=== PATIENT | female | born 1950 | race Caucasian/White ===

== ENCOUNTER 2022-04-19 10:03 | Inpatient (IN) | payer MEDICARE, OTHER ==
[~2022-04-19] VITALS: Ht 152.4 cm; Wt 95.7 kg
[2022-04-19] MEDS ORDERED: ONDANSETRON 4 MG/2 ML VIAL ONE (10:24)
[2022-04-19] MEDS ORDERED: LIDOCAINE VISCUS 2% 15 ML UDC ONE (10:25)
[2022-04-19] MEDS ORDERED: MAG HYDROX/AL HYDROX/SIMETH 30 ML LIQUID UDC ONE (10:25)
[2022-04-19] MEDS ORDERED: FAMOTIDINE. 20 MG/2 ML VIAL IV ONE ×2 (10:25→10:30)
[2022-04-19] MEDS ORDERED: IV NORMAL SALINE 1000 ML BAG IV ONE (10:30)
[2022-04-19] MEDS ORDERED: LIDOCAINE VISCUS 2% 15 ML UDC MM ONE (10:30)
[2022-04-19] MEDS ORDERED: ONDANSETRON 4 MG/2 ML VIAL IV ONE (10:30)
[2022-04-19] MEDS ORDERED: MAG HYDROX/AL HYDROX/SIMETH 30 ML LIQUID UDC PO ONE (10:30)
[2022-04-19 10:40] LABS: HEMATOCRIT 36.8 % (31.2-41.9); MEAN CORPUSCULAR HEMOGLOBIN 27.6 uug (24.7-32.8); MEAN CORPUSCULAR VOLUME 86.9 fL (75.5-95.3); PLATELET COUNT (AUTO) 178 K/uL (179-408)
[2022-04-19 11:00] LABS: CARBON DIOXIDE 24 mmol/L (21-32); CHLORIDE 101 mmol/L (98-107); CREATININE 1.1 mg/dL (0.6-1.3); GLUCOSE 291 mg/dL (74-106); POTASSIUM 4.1 mmol/L (3.5-5.1); UREA NITROGEN, BLOOD 35 mg/dL (7-18)
[2022-04-19 11:08] LABS: ALANINE AMINOTRANSFERASE 39 U/L (14-59); ALKALINE PHOSPHATASE 76 U/L (50-136); ASPARTATE AMINOTRANSFERASE 34 U/L (15-37); BILIRUBIN,DIRECT 0.1 mg/dL (0.0-0.2); BILIRUBIN,TOTAL 0.4 mg/dL (0.2-1.0); LIPASE 302 U/L (73-393); TOTAL PROTEIN, SERUM 7.6 g/dL (6.4-8.2)
--- NOTE | 2022-04-19 13:32 | NUR ---
Pt transfer to Tele room 220.
[2022-04-19] MEDS ORDERED: ROSU10TA29 PO (16:25)
[2022-04-19] MEDS ORDERED: LEFL20TA18 PO (16:25)
[2022-04-19] MEDS ORDERED: METF-440 PO (16:25)
[2022-04-19] MEDS ORDERED: LEVO75TA7 PO (16:25)
[2022-04-19] MEDS ORDERED: EMPA10TA PO (16:25)
[2022-04-19] MEDS ORDERED: FAMO40TA7 PO (16:25)
[2022-04-19] MEDS ORDERED: GLIM2TAB31 PO (16:30)
[2022-04-19] MEDS ORDERED: DICL100G31 TP (16:38)
[2022-04-19] MEDS ORDERED: ICOS1CAP PO (16:39)
[2022-04-19] MEDS: BLOOD SUGAR DIAGNOSTIC 1 EACH STRIP VI SCH ×2 (17:30→21:39)
[2022-04-19] MEDS ORDERED: DEXTROSE 50% 50 ML DISP.SYRIN IV PRN (17:30)
[2022-04-19] MEDS ORDERED: ALBUTEROL SULFATE 8 GM HFA.AER.AD IH PRN (17:30)
[2022-04-19] MEDS ORDERED: ONDANSETRON 4 MG/2 ML VIAL IV PRN (17:30)
[2022-04-19] MEDS ORDERED: MORPHINE SULFATE 2 MG/1 ML DISP.SYRIN IV PRN (17:30)
[2022-04-19] MEDS ORDERED: ACETAMINOPHEN 325 MG TABLET PO PRN (17:30)
[2022-04-19] MEDS ORDERED: TEMAZEPAM 7.5 MG CAPSULE PO PRN (17:30)
[2022-04-19] MEDS: INSULIN REGULAR, HUMAN 300 UNIT/3 ML VIAL SQ PRN (19:11)
[2022-04-19 19:27] LABS: *BILIRUBIN,URIN NEGATIVE (NEGATIVE); *BLOOD, URINE 1+ (NEGATIVE); *CLARITY,URINE CLEAR (CLEAR); *KETONES,URINE 2+ (NEGATIVE); *UROBILINOGEN,URINE 0.2 E.U./dl (NORMAL); LEUKOCYTE ESTERASE ,URINE NEGATIVE (NEGATIVE); NITRITE, URINE POSITIVE (NEGATIVE); PH,URINE 5.5 (5.0-8.0)
[2022-04-19 19:28] LABS: *COLOR,URINE HAZY (YELLOW); UGLUCOSE 2+ (NEGATIVE)
[2022-04-19 19:29] LABS: BACTERIA,URINE MODERATE /HPF (NONE SEEN); SQUAMOUS EPITHELIAL CELL,UR FEW /HPF (NONE SEEN); WBC,URINE 0-3 /HPF (0-3)
[2022-04-19 20:00] VITALS: BP 113/65
[2022-04-19] MEDS ORDERED: INSULIN GLARGINE,HUM 300 UNITS/3 ML CARTRIDGE SQ SCH (21:00)
[2022-04-19] MEDS: ATORVASTATIN 20 MG TABLET PO SCH (21:20)
[2022-04-19] MEDS: GLIMEPIRIDE 2 MG TABLET PO SCH (21:20)
[2022-04-19] MEDS: DOCUSATE SODIUM 100 MG CAPSULE PO SCH (21:20)
[2022-04-19] MEDS: ENOXAPARIN SODIUM 40 MG/0.4 ML DISP.SYRIN SQ SCH (21:39)
[2022-04-19] MEDS: INSULIN REGULAR, HUMAN 300 UNITS/3 ML VIAL SQ PRN (21:40)
[2022-04-20] VITALS: BP 104/62
[2022-04-20 04:00] VITALS: BP 107/68
[2022-04-20] MEDS: LEVOTHYROXINE SODIUM 75 MCG TABLET PO SCH (06:04)
--- NOTE | 2022-04-20 06:54 | NUR ---
Patient slept well, no noted cough or congestion. No c/o abdominal pain at this time. Needs assessed and attended to. Call light within easy reach.
[2022-04-20] MEDS ORDERED: PANTOPRAZOLE SODIUM 40 MG TABLET.DR PO SCH (07:00)
[2022-04-20] MEDS: BLOOD SUGAR DIAGNOSTIC 1 EACH STRIP VI SCH ×4 (07:09→21:03)
--- NOTE | 2022-04-20 08:00 | NUR ---
AWAKE ALERT AND ORIENTED X3, CONTINUE ON RA DENIES SOB SR ON MONITOR
[2022-04-20 08:01] LABS: HEMATOCRIT 31.1 % (31.2-41.9); MEAN CORPUSCULAR HEMOGLOBIN 28.4 uug (24.7-32.8); MEAN CORPUSCULAR VOLUME 85.6 fL (75.5-95.3); PLATELET COUNT (AUTO) 180 K/uL (179-408)
[2022-04-20] MEDS: METFORMIN HCL 500 MG TABLET PO SCH ×3 (08:19→19:00)
[2022-04-20] MEDS: GLIMEPIRIDE 2 MG TABLET PO SCH ×2 (08:19→16:58)
[2022-04-20] MEDS: INSULIN REGULAR, HUMAN 300 UNIT/3 ML VIAL SQ PRN ×3 (08:26→17:20)
[2022-04-20 08:32] LABS: THYROID STIMULATING HORMONE 0.398 mIU/mL (0.358-3.740)
[2022-04-20 08:36] LABS: BILIRUBIN,TOTAL 0.2 mg/dL (0.2-1.0); MAGNESIUM 2.2 mg/dL (1.8-2.4); PHOSPHOROUS 3.1 mg/dL (2.5-4.9); TOTAL PROTEIN, SERUM 6.9 g/dL (6.4-8.2)
[2022-04-20] MEDS ORDERED: DEXAMETHASONE SOD PHOSPHATE 4 MG INJ IV SCH (09:00)
[2022-04-20 11:33] VITALS: BP 119/62
--- NOTE | 2022-04-20 12:00 | NUR ---
SEEN BY PHYSICAL THERAPIST SEE NOTES
[2022-04-20] MEDS ORDERED: DICLOFENAC SODIUM 1% GEL TP PRN (16:00)
[2022-04-20 16:45] VITALS: BP 117/66
[2022-04-20 16:48] VITALS: BP 119/76
[2022-04-20] MEDS: JARDIANCE 10MG TABLET PO SCH (17:17)
--- NOTE | 2022-04-20 17:55 | NUR ---
RESTING MOST OF THE TIME ON RA SATURATING 96% SEEN BY DR STRICKLAND PLAN DISCHARGE IN AM IF STABLE.SR ON MONITOR
[2022-04-20 20:00] VITALS: BP 113/66
[2022-04-20] MEDS: ATORVASTATIN 20 MG TABLET PO SCH (20:51)
[2022-04-20] MEDS: SUCRALFATE 1 G TABLET PO SCH (20:51)
[2022-04-20] MEDS: DOCUSATE SODIUM 100 MG CAPSULE PO SCH (20:51)
[2022-04-20] MEDS: PANTOPRAZOLE SODIUM 40 MG TABLET.DR PO SCH (20:53)
[2022-04-20] MEDS: ENOXAPARIN SODIUM 40 MG/0.4 ML DISP.SYRIN SQ SCH (20:55)
[2022-04-20] MEDS ORDERED: INSULIN GLARGINE,HUM 300 UNITS/3 ML CARTRIDGE SQ SCH (21:00)
[2022-04-20] MEDS: INSULIN REGULAR, HUMAN 300 UNITS/3 ML VIAL SQ PRN (21:09)
[2022-04-21] VITALS: BP 110/68
[2022-04-21 04:00] VITALS: BP 145/77
[2022-04-21] MEDS: LEVOTHYROXINE SODIUM 75 MCG TABLET PO SCH ×3 (06:24→06:49)
[2022-04-21] MEDS: PANTOPRAZOLE SODIUM 40 MG TABLET.DR PO SCH ×2 (06:25→06:47)
[2022-04-21] MEDS: BLOOD SUGAR DIAGNOSTIC 1 EACH STRIP VI SCH ×2 (06:42→11:30)
[2022-04-21 06:57] LABS: HEMATOCRIT 34.1 % (31.2-41.9); MEAN CORPUSCULAR HEMOGLOBIN 27.9 uug (24.7-32.8); MEAN CORPUSCULAR VOLUME 87.7 fL (75.5-95.3); PLATELET COUNT (AUTO) 178 K/uL (179-408)
[2022-04-21 09:37] LABS: CREATININE 1.1 mg/dL (0.6-1.3); MAGNESIUM 2.5 mg/dL (1.8-2.4); PHOSPHOROUS 3.2 mg/dL (2.5-4.9); POTASSIUM 3.8 mmol/L (3.5-5.1)
[2022-04-21 11:19] VITALS: BP 129/76
[2022-04-21 11:25] VITALS: BP 129/76
[2022-04-21] MEDS ORDERED: METF-440 PO (11:34)
[2022-04-21] MEDS: GLIMEPIRIDE 2 MG TABLET PO SCH (12:11)
[2022-04-21] MEDS: METFORMIN HCL 500 MG TABLET PO SCH (12:12)
[2022-04-21] MEDS: JARDIANCE 10MG TABLET PO SCH (12:13)
[2022-04-21] MEDS: SUCRALFATE 1 G TABLET PO SCH (12:13)
--- NOTE | 2022-04-21 14:23 | NUR ---
Patient discharged. Discharge packet given to patient and explained. IV removed per protocol without complications. Patient escorted off unit via wheelchair.
== END 2022-04-21 14:00 | disposition home health service (06) | DRG 391 ==
LOC: ER 10:03 → TELE3 12:54
PROVIDERS: ADMIT Internal Medicine; ATTEND Internal Medicine
DX: K29.00 Acute gastritis without bleeding (principal); N17.0 Acute kidney failure with tubular necrosis; U07.1 COVID-19; D68.59 Other primary thrombophilia; Z68.41 Body mass index [BMI] 40.0-44.9, adult; Z74.09 Other reduced mobility; D64.9 Anemia, unspecified; E03.9 Hypothyroidism, unspecified; E66.9 Obesity, unspecified; I10 Essential (primary) hypertension; N20.0 Calculus of kidney; K44.9 Diaphragmatic hernia without obstruction or gangrene; Z98.84 Bariatric surgery status; E78.5 Hyperlipidemia, unspecified; Z88.2 Allergy status to sulfonamides; R55 Syncope and collapse; E11.65 Type 2 diabetes mellitus with hyperglycemia; R16.0 Hepatomegaly, not elsewhere classified; K27.9 Peptic ulcer, site unspecified, unspecified as acute or chronic, without hemorrhage or perforation; Z79.84 Long term (current) use of oral hypoglycemic drugs; R53.1 Weakness
CPT/HCPCS: 36415; 71045; 83550; 83605; 83615; 83690; 83735; 84100; 84443; 84484; 85025; 86140; 87040; 93005; A4663; G0378; J1100; J1650; J1815; J2270; J2405; J3490; J3535; J7040